=== PATIENT | male | born 1955 ===

== ENCOUNTER 2019-05-05 04:17 | Emergency (ER) | payer OTHER ==
[~2019-05-05] VITALS: Ht 172.7 cm; Wt 89.8 kg
[2019-05-05] MEDS ORDERED: METFORMIN HCL500 M2 PO (04:31)
[2019-05-05] MEDS ORDERED: SYNTHROID75 MCG PO (04:31)
[2019-05-05] MEDS ORDERED: HYDROCHLOROTHIA25 MG PO (04:32)
[2019-05-05] MEDS ORDERED: MOBIC15 MG PO (07:11)
== END 2019-05-05 07:08 | disposition home or self-care (01) ==
LOC: ER 04:17
DX: S30.1XXA Contusion of abdominal wall, initial encounter (principal); W01.0XXA Fall on same level from slipping, tripping and stumbling without subsequent striking against object, initial encounter; Y93.89 Activity, other specified; Y92.89 Other specified places as the place of occurrence of the external cause; Y99.8 Other external cause status

== ENCOUNTER 2019-05-08 00:51 | Emergency (ER) | payer OTHER ==
[~2019-05-08] VITALS: Ht 170.2 cm; Wt 135.2 kg
[~2019-05-08 00:51] MED LIST: HYDROCHLOROTHIA25 MG PO; METFORMIN HCL500 M2 PO; MOBIC15 MG PO; SYNTHROID75 MCG PO
== END 2019-05-08 09:07 | disposition home or self-care (01) ==
LOC: ER 00:51
DX: S30.0XXA Contusion of lower back and pelvis, initial encounter (principal); W18.39XA Other fall on same level, initial encounter; Y93.89 Activity, other specified; Y92.89 Other specified places as the place of occurrence of the external cause; Y99.8 Other external cause status